=== PATIENT | female | born 1945 | race Caucasian/White ===

== ENCOUNTER 2017-07-10 11:05 | Emergency (ER) | payer MEDICARE, BC ==
[2017-07-10 11:46] VITALS: BP 170/75
--- NOTE | 2017-07-10 12:15 | EDM.PDOC ---
ED HPI GENERAL MEDICAL PROBLEM - General Chief Complaint: Lower Extremity Injury/Pain Stated Complaint: HURT LEFT LEG AND KNEE Time Seen by Provider: 07/10/17 12:09 Source of Information: Reports: Patient, Family, RN Notes Reviewed History Limitations: Reports: No Limitations - History of Present Illness INITIAL COMMENTS - FREE TEXT/NARRATIVE: 72-year-old female presents to the emergency department day complaint of left knee pain, she injured herself yesterday on the boat when she fell landed against the boat seat with impact onto her left knee, now she has difficulty bending her knee and difficulty bearing weight Left Leg Pain Score (Numeric/FACES): 3 - Related Data Allergies Allergy/AdvReac Type Severity Reaction Status Date / Time minocycline Allergy Cannot Verified 08/17/15 11:19 Remember Home Meds: Home Meds Cetirizine HCl [Zyrtec] 10 mg PO DAILY 10/13/13 [History] Famotidine [Pepcid] 20 mg PO DAILY 10/13/13 [History] Hydrochlorothiazide 25 mg PO DAILY 10/13/13 [History] Losartan Potassium [Cozaar] 50 mg PO DAILY 10/13/13 [History] Metoprolol Succinate 25 mg PO DAILY 10/13/13 [History] Omeprazole [Prilosec] 40 mg PO BID 10/13/13 [History] Gluc HCl/Csa/Jessi Hy/Hyalur Ac [Glucosamine Chondroitin] 2 tab PO BEDTIME [History] Zolpidem Tartrate [Ambien] 1 tab PO BEDTIME PRN 08/17/15 [History] atorvaSTATin [Lipitor] 1 tab PO BEDTIME 08/17/15 [History] Cholecalciferol (Vitamin D3) [Vitamin D3] 2,000 unit PO DAILY 07/10/17 [History] Past Medical History HEENT History: Reports: Impaired Vision Cardiovascular History: Reports: High Cholesterol, Hypertension Respiratory History: Reports: Asthma, Bronchitis, Recurrent Gastrointestinal History: Reports: GERD Genitourinary History: Reports: Renal Calculus, Other (See Below) Other Genitourinary History: mass removed from kidney-CA. Musculoskeletal History: Reports: Arthritis, Back Pain, Chronic Endocrine/Metabolic History: Reports: Other (See Below) Other Endocrine/Metabolic History: nodule on thyroid Oncologic (Cancer) History: Reports: Renal - Past Surgical History GI Surgical History: Reports: Cholecystectomy Musculoskeletal Surgical History: Reports: Arthroscopic Procedure Social & Family History - Tobacco Use Smoking Status *Q: Never Smoker - Caffeine Use Caffeine Use: Reports: Coffee - Recreational Drug Use Recreational Drug Use: No Review of Systems - Review of Systems Review Of Systems: See Below (She) Musculoskeletal: Reports: Joint Pain (Left knee pain) ED EXAM, GENERAL - Physical Exam Exam: See Below Free Text/Narrative:: Examination of left knee I don't appreciate any erythema there is no edema noted there is no specific point tenderness to palpation she is tender with valgus maneuver varus maneuver is negative Kayli's is negative there is no tenderness with movement of the patella Exam Limited By: No Limitations General Appearance: Alert, WD/WN, No Apparent Distress Respiratory/Chest: No Respiratory Distress Course - Vital Signs Last Recorded V/S: Last Vital Signs Temp 95.5 F 07/10/17 11:46 Pulse 59 L 07/10/17 11:46 Resp 18 07/10/17 11:46 BP 170/75 H 07/10/17 11:46 Pulse Ox 100 07/10/17 11:46 Departure - Departure Time of Disposition: 12:46 Disposition: Home, Self-Care 01 Condition: Good Clinical Impression: Contusion of left knee Qualifiers: Encounter type: initial encounter Qualified Code(s): S80.02XA - Contusion of left knee, initial encounter - Discharge Information Referrals: PCP,None [Primary Care Provider] - Forms: ED Department Discharge Additional Instructions: Use Tylenol as needed for baseline pain control, use tramadol for breakthrough pain, please follow-up with orthopedics in 5-7 days if no improvement, we will contact you if the radiology read differs and what you were informed - Assessment/Plan Plan: Assessment Acuity = acute Site and laterality = left knee pain Etiology = secondary trauma Manifestations = none Location of injury = Home Lab values = left knee x-ray I did review films myself I cannot appreciate any acute process, the official read from radiology is pending Plan I did review x-ray results with her, we will contact her if the radiologist read is different than my own food plan is to discharge home she is going to use a foam knee sleeve for comfort, and Tylenol for baseline pain control, prescription written for tramadol 1-2 tablets every 4-6 hours when necessary total #15 for breakthrough pain follow-up with orthopedics in 5-7 days if not better This note was dictated using [employer] voice recognition software please call with any questions on syntax or grammar.
--- NOTE | 2017-07-10 12:42 | CR ---
Knee 3V Lt INDICATION: Pain, trauma FINDINGS: Moderate medial compartment narrowing and hypertrophic change. Hypertrophic change patellof emoral compartment. Small knee effusion or synovitis. No acute fracture.
== END 2017-07-10 12:58 | disposition home or self-care (01) ==
LOC: JP.ED 11:05
DX: S80.02XA Contusion of left knee, initial encounter (principal); Z88.8 Allergy status to other drugs, medicaments and biological substances; Z79.899 Other long term (current) drug therapy; I10 Essential (primary) hypertension; W19.XXXA Unspecified fall, initial encounter
CPT/HCPCS: 73562-26-LT; 73562-LT; 99284

== ENCOUNTER 2018-08-19 11:13 | Emergency (ER) | payer BC, MEDICARE ==
[2018-08-19 12:54] VITALS: BP 137/70
--- NOTE | 2018-08-19 13:21 | EDM.PDOC ---
ED HPI GENERAL MEDICAL PROBLEM - General Chief Complaint: Respiratory Problem Stated Complaint: SHORTNESS OF BREATH CANCER PATIENT Time Seen by Provider: 08/19/18 13:00 Source of Information: Reports: Patient, Family, RN Notes Reviewed History Limitations: Reports: No Limitations - History of Present Illness INITIAL COMMENTS - FREE TEXT/NARRATIVE: 73-year-old female presents emergency department today complaint of shortness of breath. She has a known history of colon cancer with metastases currently under going chemotherapy last treatment was one week ago. She states she usually feels short of breath and weak after her chemotherapy treatment but only last 2 or 3 days. This particular event has prolonged now for a week and over the last 24 hours has progressively gotten worse. She states she feels fine at rest however does get significantly short of breath with exertion. No fever no chest pain is having diarrhea which is more than usual she feels dehydrated - Related Data Allergies Allergy/AdvReac Type Severity Reaction Status Date / Time minocycline Allergy Cannot Verified 08/19/18 13:05 Remember Home Meds: Home Meds Cetirizine HCl [Zyrtec] 10 mg PO DAILY 10/13/13 [History] Famotidine [Pepcid] 20 mg PO DAILY 10/13/13 [History] Metoprolol Succinate 25 mg PO DAILY 10/13/13 [History] Omeprazole [Prilosec] 40 mg PO BID 10/13/13 [History] hydroCHLOROthiazide [Hydrochlorothiazide] 25 mg PO DAILY 10/13/13 [History] Zolpidem Tartrate [Ambien] 1 tab PO BEDTIME PRN 08/17/15 [History] atorvaSTATin [Lipitor] 1 tab PO BEDTIME 08/17/15 [History] Cholecalciferol (Vitamin D3) [Vitamin D3] 2,000 unit PO DAILY 07/10/17 [History] Allopurinol [Zyloprim] 50 mg PO DAILY 08/19/18 [History] Loperamide HCl [Loperamide] 4 mg PO ASDIRECTED 08/19/18 [History] Potassium Chloride 20 meq PO BID 08/19/18 [History] Past Medical History HEENT History: Reports: Impaired Vision Cardiovascular History: Reports: High Cholesterol, Hypertension Respiratory History: Reports: Asthma, Bronchitis, Recurrent Gastrointestinal History: Reports: GERD Genitourinary History: Reports: Renal Calculus, Other (See Below) Other Genitourinary History: mass removed from kidney-CA. Musculoskeletal History: Reports: Arthritis, Back Pain, Chronic Endocrine/Metabolic History: Reports: Other (See Below) Other Endocrine/Metabolic History: nodule on thyroid Oncologic (Cancer) History: Reports: Colon (Metastatic), Renal - Past Surgical History GI Surgical History: Reports: Cholecystectomy Musculoskeletal Surgical History: Reports: Arthroscopic Procedure Social & Family History - Tobacco Use Smoking Status *Q: Never Smoker - Caffeine Use Caffeine Use: Reports: Coffee - Recreational Drug Use Recreational Drug Use: No ED ROS GENERAL - Review of Systems Review Of Systems: See Below Constitutional: Reports: Weakness. Denies: Fever, Chills HEENT: Reports: No Symptoms Respiratory: Reports: Shortness of Breath Cardiovascular: Reports: Dyspnea on Exertion. Denies: Chest Pain GI/Abdominal: Reports: Diarrhea. Denies: Abdominal Pain, Nausea, Vomiting : Reports: No Symptoms Musculoskeletal: Reports: No Symptoms Skin: Reports: No Symptoms ED EXAM, GENERAL - Physical Exam Exam: See Below Exam Limited By: No Limitations General Appearance: Alert, WD/WN, No Apparent Distress Respiratory/Chest: No Respiratory Distress, Lungs Clear, Normal Breath Sounds, No Accessory Muscle Use Cardiovascular: Regular Rate, Rhythm, No Murmur GI/Abdominal: Soft, Non-Tender Course - Vital Signs Last Recorded V/S: Last Vital Signs Temp 97.7 F 08/19/18 13:04 Pulse 111 H 08/19/18 13:04 Resp 20 08/19/18 13:04 BP 137/70 08/19/18 13:04 Pulse Ox 100 08/19/18 13:04 - Orders/Labs/Meds Orders: Active Orders 24 hr Category Date Time Status EKG Documentation Completion [RC] ASDIRECTED Care 08/19/18 13:19 Active Lactated Ringers [Ringers, Lactated] 1,000 ml Med 08/19/18 13:30 Active IV ASDIRECTED EKG 12 Lead [EK] Stat Ther 08/19/18 13:18 Ordered Medication Orders Lactated Ringer's (Ringers, Lactated) 1,000 mls @ 999 mls/hr IV ASDIRECTED LOUSIE Last Admin: 08/19/18 13:36 Dose: 999 mls/hr Labs: Laboratory Tests 08/19/18 08/19/18 08/19/18 Range/Units 13:14 13:37 13:37 WBC 2.9 L (4.5-11.0) K/uL RBC 3.14 L (3.30-5.50) M/uL Hgb 9.0 L (12.0-15.0) g/dL Hct 28.4 L (36.0-48.0) % MCV 90 (80-98) fL MCH 29 (27-31) pg MCHC 32 (32-36) % Plt Count 105 L (150-400) K/uL Neut % (Auto) 53 (36-66) % Lymph % (Auto) 43 (24-44) % [place] % (Auto) 3 (2-6) % Eos % (Auto) 0 L (2-4) % Baso % (Auto) 0 (0-1) % Sodium 138 L (140-148) mmol/L Potassium 3.3 L (3.6-5.2) mmol/L Chloride 102 (100-108) mmol/L Carbon Dioxide 21 (21-32) mmol/L Anion Gap 18.3 H (5.0-14.0) mmol/L BUN 25 H (7-18) mg/dL Creatinine 1.5 H (0.6-1.0) mg/dL Est Cr Clr Drug Dosing 30.95 mL/min Estimated GFR (MDRD) 34 L (>60) Glucose 100 (74-106) mg/dL Lactic Acid (0.4-2.0) mmol/L Calcium 7.9 L (8.5-10.1) mg/dL Total Bilirubin 0.6 (0.2-1.0) mg/dL AST 43 H (15-37) U/L ALT 51 (12-78) U/L Alkaline Phosphatase 92 (46-116) U/L Troponin I < 0.017 (0.000-0.056) ng/mL Total Protein 6.7 (6.4-8.2) g/dL Albumin 3.2 L (3.4-5.0) g/dL Globulin 3.5 (2.3-3.5) g/dL Albumin/Globulin Ratio 0.9 L (1.2-2.2) Lipase 146 (73-393) U/L Urine Color Yellow Urine Appearance Clear Urine pH 5.0 (4.5-8.0) Ur Specific [place] 1.020 (1.008-1.030) Urine Protein Trace (NEGATIVE) mg/dL Urine Glucose (UA) Normal (NEGATIVE) mg/dL Urine Ketones Negative (NEGATIVE) mg/dL Urine Occult Blood Negative (NEGATIVE) Urine Nitrite Negative (NEGATIVE) Urine Bilirubin Negative (NEGATIVE) Urine Urobilinogen Normal (NORMAL) mg/dL Ur Leukocyte Esterase Negative (NEGATIVE) Urine RBC Not seen (0-5) Urine WBC 0-5 (0-5) Ur Epithelial Cells Not seen Amorphous Sediment Not seen Urine Bacteria Not seen Urine Mucus Moderate Urine Other 08/19/18 Range/Units 13:37 WBC (4.5-11.0) K/uL RBC (3.30-5.50) M/uL Hgb (12.0-15.0) g/dL Hct (36.0-48.0) % MCV (80-98) fL MCH (27-31) pg MCHC (32-36) % Plt Count (150-400) K/uL Neut % (Auto) (36-66) % Lymph % (Auto) (24-44) % [place] % (Auto) (2-6) % Eos % (Auto) (2-4) % Baso % (Auto) (0-1) % Sodium (140-148) mmol/L Potassium (3.6-5.2) mmol/L Chloride (100-108) mmol/L Carbon Dioxide (21-32) mmol/L Anion Gap (5.0-14.0) mmol/L BUN (7-18) mg/dL Creatinine (0.6-1.0) mg/dL Est Cr Clr Drug Dosing mL/min Estimated GFR (MDRD) (>60) Glucose (74-106) mg/dL Lactic Acid 2.1 H (0.4-2.0) mmol/L Calcium (8.5-10.1) mg/dL Total Bilirubin (0.2-1.0) mg/dL AST (15-37) U/L ALT (12-78) U/L Alkaline Phosphatase (46-116) U/L Troponin I (0.000-0.056) ng/mL Total Protein (6.4-8.2) g/dL Albumin (3.4-5.0) g/dL Globulin (2.3-3.5) g/dL Albumin/Globulin Ratio (1.2-2.2) Lipase (73-393) U/L Urine Color Urine Appearance Urine pH (4.5-8.0) Ur Specific [place] (1.008-1.030) Urine Protein (NEGATIVE) mg/dL Urine Glucose (UA) (NEGATIVE) mg/dL Urine Ketones (NEGATIVE) mg/dL Urine Occult Blood (NEGATIVE) Urine Nitrite (NEGATIVE) Urine Bilirubin (NEGATIVE) Urine Urobilinogen (NORMAL) mg/dL Ur Leukocyte Esterase (NEGATIVE) Urine RBC (0-5) Urine WBC (0-5) Ur Epithelial Cells Amorphous Sediment Urine Bacteria Urine Mucus Urine Other Meds: Medications Generic Name Dose Route Start Last Admin Trade Name Freq PRN Reason Stop Dose Admin Lactated Ringer's 1,000 mls @ 999 mls/hr 08/19/18 13:30 08/19/18 13:36 Ringers, Lactated IV 999 mls/hr ASDIRECTED LOUISE Administration Departure - Departure Time of Disposition: 14:57 Disposition: Home, Self-Care 01 Condition: Fair Clinical Impression: Dehydration - Discharge Information Referrals: PCP,None [Primary Care Provider] - Forms: ED Department Discharge Additional Instructions: Continue to push fluids, follow-up with your primary care upon return home, call return to the emergency department worsening of symptoms - My Orders Last 24 Hours: My Active Orders 08/19/18 13:18 EKG 12 Lead [EK] Stat 08/19/18 13:19 EKG Documentation Completion [RC] ASDIRECTED 08/19/18 13:30 Lactated Ringers [Ringers, Lactated] 1,000 ml IV ASDIRECTED - Assessment/Plan Last 24 Hours: My Active Orders 08/19/18 13:18 EKG 12 Lead [EK] Stat 08/19/18 13:19 EKG Documentation Completion [RC] ASDIRECTED 08/19/18 13:30 Lactated Ringers [Ringers, Lactated] 1,000 ml IV ASDIRECTED Plan: Assessment Acuity = acute Site and laterality = dehydration , complicated in a patient with known history of colon cancer with metastases Etiology = probably related to recent chemotherapy treatment Manifestations = none Location of injury = Home Lab values = CBC reveals WBC low at 2.9 consistent leukopenia hemoglobin low at 9.0 consistent normochromic anemia CMP reveals creatinine elevated 1.5 consistent chronic renal failure stage G IIIB urinalysis unremarkable chest x- ray shows no acute process Plan She had good improvement with a liter fluids was able ambulate in the ED without difficulty plan is to follow-up with her primary care upon return home This note was dictated using [employer] voice recognition software please call with any questions on syntax or grammar.
[2018-08-19] MEDS ORDERED: Lactated Ringers 1,000 ML IV SCH (13:30)
--- NOTE | 2018-08-19 14:48 | CRLCR ---
INDICATION: SOB. TECHNIQUE: PA and lateral. COMPARISON: None. FINDINGS: Lungs and pleural space is clear. Heart size and pulmonary vasculature within normal limits. No significant bony abnormality. Port-A-Cath in the SVC. IMPRESSION: Essentially negative chest. Dictated by Anthony Wong MD @ Aug 19 2018 2:45PM Signed by Dr. Anthony Wong @ Aug 19 2018 2:46PM
== END 2018-08-19 15:11 | disposition home or self-care (01) ==
LOC: JP.ED 11:13
DX: E86.0 Dehydration (principal); C18.9 Malignant neoplasm of colon, unspecified; Z79.899 Other long term (current) drug therapy
CPT/HCPCS: 36415; 71046; 80053; 81001; 83605; 83690; 84484; 85025; 93005; 96360; 99285; J1642; J7120